=== PATIENT | male | born 1965 | race Caucasian/White ===

== ENCOUNTER 2021-12-11 12:01 | Outpatient (CLI) | payer BC ==
[2021-12-11 13:57] LABS: Hemoglobin 14.2 g/dL (13.5-17.5); Mean Corpuscular HGB CONC 33.9 g/dL (32.0-36.0); Mean Corpuscular Hemoglobin 32.1 pg (27.0-33.0); Mean Corpuscular Volume 94.8 fl (81.2-95.1); Mean Platelet Volume 10.4 fl (7.4-10.4); Platelet Count 204 10x3/uL (150-450); RBC Distribution Width 11.3 % (11.5-14.5); Red Blood Cell (RBC) Count 4.42 10x6/uL (4.32-5.72); White Blood Cell (WBC) Count 6.1 10x3/uL (3.5-10.5)
[2021-12-11 14:17] LABS: PTT 27.1 sec (22.0-33.0)
[2021-12-11 14:20] LABS: Anion Gap 15 mmol/L (10-20); BUN (Urea Nitrogen) 13 mg/dL (8.4-25.7); Calc. Creatinine Clearance 0 mL/min (70-130); Calcium 9.3 mg/dL (7.8-10.44); Carbon Dioxide 23 mmol/L (22-29); Chloride 104 mmol/L (98-107); Glucose 91 mg/dL (70-105); Potassium 4.1 mmol/L (3.5-5.1); Sodium 138 mmol/L (136-145)
[2021-12-11 14:37] LABS: Bilirubin Neg (Negative); Blood, Urine 10 (Negative); Clarity Clear (Clear); Glucose, Urine (Dipstick) Normal (Negative); Ketone, Urine Negative (Negative); Leukocyte Negative (Negative); Nitrite Negative (Negative); Protein, Urine (Dipstick) Negative (Neg-Trace); Urobilinogen Normal mg/dL (Less than 2)
[2021-12-11 15:08] LABS: Bacteria/HPF None Seen HPF (None Seen); RBC/HPF None Seen HPF (0-3); Squamous Epithelial 0-3 HPF (0-3); WBC/HPF None Seen HPF (0-3)
[2021-12-12 12:47] LABS: SARS-CoV-2 PCR by NAA Not Detected (NotDetected)
== END 2021-12-11 12:02 | disposition home or self-care (01) ==
LOC: LABBT 12:01
PROVIDERS: ATTEND Urology
DX: Z01.818 Encounter for other preprocedural examination (principal); C61 Malignant neoplasm of prostate; R35.1 Nocturia; Z20.822 Contact with and (suspected) exposure to COVID-19
CPT/HCPCS: 71046; 80048; 81001; 85027; 85610; 85730; 87086; 93005; 93010; U0003; U0005

== ENCOUNTER 2021-12-14 05:59 | Day surgery (SDC) | payer BC ==
[2021-12-04 14:57] VITALS: BMI 31.6
[2021-12-14] MEDS ORDERED: Midazolam HCl 2 mg/2 ml Vial ONE (07:14)
[2021-12-14] MEDS ORDERED: Propofol 500 MG/50 ML VIAL ONE (07:14)
[2021-12-14] MEDS ORDERED: Fentanyl 100 MCG/2 ML VIAL ONE (07:14)
[2021-12-14] MEDS ORDERED: cefTRIAXone\\ROCEPHIN 1 GM VIAL ONE (07:23)
[2021-12-14] MEDS ORDERED: Sodium Chloride 0.9% 100 ML ONE (07:24)
== END 2021-12-14 09:05 | disposition home or self-care (01) ==
LOC: SDC 05:59
PROVIDERS: ATTEND Urology
PROC: 0VB03ZX Excision of Prostate, Percutaneous Approach, Diagnostic (ICD-10-PCS; principal; 2021-12-14)
DX: C61 Malignant neoplasm of prostate (principal); N41.1 Chronic prostatitis; N40.0 Benign prostatic hyperplasia without lower urinary tract symptoms; I10 Essential (primary) hypertension; Z79.82 Long term (current) use of aspirin; Z79.899 Other long term (current) drug therapy
CPT/HCPCS: 88305; G0416; J0696; J2250; J2704; J3010; J3490

== ENCOUNTER 2022-07-03 15:44 | Outpatient (CLI) | payer BC ==
[2022-07-03 16:28] LABS: #Eosinphils 0.2 10x3/uL (0.0-0.5); #Monocytes 0.6 10x3/uL (0.0-1.1); #Neutrophils 3.1 10x3/uL (1.5-8.4); %Basophils 0.8 % (0.0-2.0); %Eosinophils 3.9 % (0.0-6.0); %Lymphocytes 21.4 % (18.0-47.0); %Monocytes 12.6 % (0.0-10.0); %Neutrophils 60.9 % (40.0-75.0); Hemoglobin 13.5 g/dL (13.5-17.5); Mean Corpuscular HGB CONC 34.4 g/dL (32.0-36.0); Mean Corpuscular Hemoglobin 31.7 pg (27.0-33.0); Mean Corpuscular Volume 92.3 fl (81.2-95.1); Platelet Count 179 10x3/uL (150-450); RBC Distribution Width 12.1 % (11.5-14.5); Red Blood Cell (RBC) Count 4.26 10x6/uL (4.32-5.72); White Blood Cell (WBC) Count 5.1 10x3/uL (3.5-10.5)
[2022-07-03 16:47] LABS: Prothrombin Time 11.2 sec (9.5-12.1)
[2022-07-03 16:54] LABS: Anion Gap 14 mmol/L (10-20); BUN (Urea Nitrogen) 13 mg/dL (8.4-25.7); Calc. Creatinine Clearance 0 mL/min (70-130); Calcium 9.6 mg/dL (7.8-10.44); Carbon Dioxide 25 mmol/L (22-29); Chloride 102 mmol/L (98-107); Estimated GFR 104; Glucose 91 mg/dL (70-105); Potassium 3.9 mmol/L (3.5-5.1); Sodium 137 mmol/L (136-145)
== END 2022-07-03 15:45 | disposition home or self-care (01) ==
LOC: LABBT 15:44
PROVIDERS: ATTEND Orthopaedic Surgery
DX: Z01.818 Encounter for other preprocedural examination (principal); M17.11 Unilateral primary osteoarthritis, right knee; Z20.822 Contact with and (suspected) exposure to COVID-19
CPT/HCPCS: 80048; 85025; 85610; 87081; 87811; 93005; 93010

== ENCOUNTER 2022-07-08 05:59 | Observation (INO) | payer BC ==
[2022-07-05 09:57] VITALS: BMI 31.7
[2022-07-08] MEDS ORDERED: fentaNYL Citrate/PF 100 MCG/2 ML SYRINGE ONE ×2 (06:04→07:50)
[2022-07-08] MEDS ORDERED: Bupivacaine PF 0.5% 30 ML VIAL ONE (06:25)
[2022-07-08] MEDS ORDERED: Sodium Chloride 0.9% 100 ML ONE ×2 (06:41→06:58)
[2022-07-08] MEDS ORDERED: Vancomycin (BATCH) 1.5 GRAM/300 ML BAG ONE (06:41)
[2022-07-08] MEDS ORDERED: Tranexamic Acid 1,000 MG/10 ML VIAL ONE (06:41)
[2022-07-08] MEDS ORDERED: Fentanyl 100 MCG/2 ML VIAL ONE ×2 (06:45→09:39)
[2022-07-08] MEDS ORDERED: Midazolam HCl 2 mg/2 ml Vial ONE (06:45)
[2022-07-08] MEDS ORDERED: HYDROcodone/Acetaminophen 10/325 mg Tablet PO PRN ×2 (06:49)
[2022-07-08] MEDS ORDERED: Promethazine HCl 25 MG/ML VIAL IM PRN ×2 (06:49→08:15)
[2022-07-08] MEDS ORDERED: diphenhydrAMINE 25 MG CAP PO PRN (06:49)
[2022-07-08] MEDS ORDERED: Ondansetron PF 4 MG/2 ML Vial IVP PRN ×2 (06:49→08:15)
[2022-07-08] MEDS ORDERED: Fentanyl 100 MCG/2 ML VIAL SLOW IVP PRN ×2 (06:49)
[2022-07-08] MEDS ORDERED: Zolpidem Tartrate 5 MG TAB PO PRN ×2 (06:49→08:15)
[2022-07-08] MEDS ORDERED: Acetaminophen 325 MG TAB PO PRN (06:49)
[2022-07-08] MEDS ORDERED: CEFAZOLIN 2 GM VIAL ONE (06:58)
[2022-07-08] MEDS ORDERED: Phenylephrine 10 MG/ML VIAL ONE (07:18)
[2022-07-08] MEDS ORDERED: Dexamethasone 20 MG/5 ML VIAL ONE (07:18)
[2022-07-08] MEDS ORDERED: Bupivacaine HCl 0.5%/Epinephrine 1:200,000/PF 30 ml Vial ONE (07:18)
[2022-07-08] MEDS ORDERED: Rocuronium Bromide 10 MG/ML (10ML VIAL) ONE (07:18)
[2022-07-08] MEDS ORDERED: PROPOFOL 200 MG/20 ML VIAL ONE (07:18)
[2022-07-08] MEDS ORDERED: Ondansetron PF 4 MG/2 ML Vial ONE (07:18)
[2022-07-08] MEDS ORDERED: SUGAMMADEX SODIUM 200 MG/2 ML VIAL ONE (07:50)
[2022-07-08] MEDS ORDERED: Fentanyl 100 MCG/2 ML VIAL IV PRN (08:07)
[2022-07-08] MEDS ORDERED: traMADol HCl 50 MG TAB PO PRN ×2 (08:15)
[2022-07-08] MEDS ORDERED: Ropivacaine 0.2% 550 ML 550 ML NERVE BLCK SCH (08:15)
[2022-07-08] MEDS ORDERED: Multivit, Therapeutic 1 TAB PO SCH (09:00)
[2022-07-08] MEDS: Sodium Chloride 0.9% 1,000 ML IV SCH ×3 (11:02→20:30)
[2022-07-08] MEDS: Aspirin 81 mg Enteric Coated Tablet PO SCH ×2 (11:02→21:31)
[2022-07-08] MEDS: Lisinopril 10 MG TAB PO SCH (11:02)
[2022-07-08] MEDS: Rosuvastatin 20 MG TAB PO SCH (11:02)
[2022-07-08] MEDS: FLUoxetine HCl 20 MG CAP PO SCH (11:02)
[2022-07-08] MEDS: HYDROcodone/Acetaminophen 10/325 mg Tablet PO PRN ×3 (11:19→21:32)
[2022-07-08] MEDS: Ketorolac Tromethamine 30 MG/ML VIAL IVP SCH ×3 (11:20→23:48)
[2022-07-08] MEDS ORDERED: Triple Antibiotic Oint 1 GM Packet TOP PRN (13:29)
[2022-07-08] MEDS ORDERED: Ketorolac Tromethamine 30 MG/ML VIAL IVP SCH (14:00)
[2022-07-08] MEDS: CEFAZOLIN 2 GM in Sodium Chloride 0.9% 100 ML IVPB SCH ×2 (14:59→23:47)
[2022-07-09 05:28] LABS: Hemoglobin 10.2 g/dL (14.0-18.0); Mean Corpuscular HGB CONC 34.5 g/dL (32.0-36.0); Mean Corpuscular Hemoglobin 32.6 pg (27.0-31.0); Mean Corpuscular Volume 94.5 fL (78.0-98.0); Mean Platelet Volume 7.7 fL (7.4-10.4); Platelet Count 149 thou/uL (130-400); RBC Distribution Width 11.3 % (11.5-14.5); Red Blood Cell (RBC) Count 3.13 mill/uL (4.70-6.10); White Blood Cell (WBC) Count 8.2 thou/uL (4.8-10.8)
[2022-07-09] MEDS: Ketorolac Tromethamine 30 MG/ML VIAL IVP SCH (05:34)
[2022-07-09] MEDS: HYDROcodone/Acetaminophen 10/325 mg Tablet PO PRN ×2 (05:34→08:43)
[2022-07-09 08:13] VITALS: BP 145/84; TEMP 97.9
[2022-07-09] MEDS: FLUoxetine HCl 20 MG CAP PO SCH (08:42)
[2022-07-09] MEDS: Rosuvastatin 20 MG TAB PO SCH (08:43)
[2022-07-09] MEDS: Aspirin 81 mg Enteric Coated Tablet PO SCH (08:43)
[2022-07-09] MEDS: Lisinopril 10 MG TAB PO SCH (08:43)
[2022-07-09] MEDS ORDERED: Senokot S 8.6-50 MG TAB PO SCH (09:00)
[2022-07-09] MEDS ORDERED: Multivitamin W/ Minerals 1 TAB PO SCH (09:00)
[2022-07-09] MEDS ORDERED: Ferrous Gluconate 324 MG TAB PO SCH (09:00)
== END 2022-07-09 10:40 | disposition home or self-care (01) ==
LOC: SDC 05:59 → SURG A 10:15 → SDC 10:24 → SURG A 10:25
PROVIDERS: ADMIT Orthopaedic Surgery; ATTEND Orthopaedic Surgery
PROC: 0SRC0J9 Replacement of Right Knee Joint with Synthetic Substitute, Cemented, Open Approach (ICD-10-PCS; principal; 2022-07-08)
PROC: 8E0YXBZ Computer Assisted Procedure of Lower Extremity (ICD-10-PCS; 2022-07-08)
PROC: 3E0T3BZ Introduction of Anesthetic Agent into Peripheral Nerves and Plexi, Percutaneous Approach (ICD-10-PCS; 2022-07-08)
DX: M17.0 Bilateral primary osteoarthritis of knee (principal); E78.00 Pure hypercholesterolemia, unspecified; I10 Essential (primary) hypertension; K21.9 Gastro-esophageal reflux disease without esophagitis; C61 Malignant neoplasm of prostate; Z87.891 Personal history of nicotine dependence; Z79.899 Other long term (current) drug therapy
CPT/HCPCS: 36415; 85027; A4306; C1713; C1776; J0690; J1100; J1885; J2250; J2370; J2405; J2704; J2795; J3010; J3370; J3490; J7050; S0020

== ENCOUNTER 2022-11-29 11:18 | Outpatient (CLI) | payer BC ==
[2022-11-29 12:52] LABS: Prothrombin Time 10.7 sec (9.5-12.1)
[2022-11-29 12:54] LABS: #Basophils 0.1 10x3/uL (0.0-0.2); #Eosinphils 0.2 10x3/uL (0.0-0.5); #Monocytes 0.7 10x3/uL (0.0-1.1); %Basophils 1.3 % (0.0-2.0); %Eosinophils 3.1 % (0.0-6.0); %Lymphocytes 22.2 % (18.0-47.0); %Monocytes 11.4 % (0.0-10.0); %Neutrophils 61.8 % (40.0-75.0); Hemoglobin 14.7 g/dL (13.5-17.5); Mean Corpuscular HGB CONC 35.2 g/dL (32.0-36.0); Mean Corpuscular Hemoglobin 32.1 pg (27.0-33.0); Mean Corpuscular Volume 91.3 fl (81.2-95.1); Mean Platelet Volume 9.8 fl (7.4-10.4); Platelet Count 212 10x3/uL (150-450); RBC Distribution Width 12.7 % (11.5-14.5); Red Blood Cell (RBC) Count 4.58 10x6/uL (4.32-5.72); White Blood Cell (WBC) Count 6.4 10x3/uL (3.5-10.5)
[2022-11-29 13:02] LABS: Anion Gap 14 mmol/L (10-20); BUN (Urea Nitrogen) 12 mg/dL (8.4-25.7); Calc. Creatinine Clearance 0 mL/min (70-130); Calcium 9.3 mg/dL (7.8-10.44); Carbon Dioxide 24 mmol/L (22-29); Chloride 103 mmol/L (98-107); Estimated GFR 102; Glucose 131 mg/dL (70-105); Potassium 3.9 mmol/L (3.5-5.1); Sodium 137 mmol/L (136-145)
== END 2022-11-29 11:19 | disposition home or self-care (01) ==
LOC: LABBT 11:18
PROVIDERS: ATTEND Orthopaedic Surgery
DX: Z01.818 Encounter for other preprocedural examination (principal); M17.12 Unilateral primary osteoarthritis, left knee
CPT/HCPCS: 80048; 85025; 85610; 87081; 93005; 93010

== ENCOUNTER 2022-12-02 06:33 | Observation (INO) | payer BC ==
[2022-12-02] MEDS ORDERED: Vancomycin (BATCH) 1.5 GRAM/300 ML BAG ONE (07:12)
[2022-12-02] MEDS ORDERED: Sodium Chloride 0.9% 100 ML ONE ×2 (07:12→09:13)
[2022-12-02] MEDS ORDERED: Tranexamic Acid 1,000 MG/10 ML VIAL ONE (07:12)
[2022-12-02] MEDS ORDERED: CEFAZOLIN 2 GM VIAL ONE ×2 (07:12→09:13)
[2022-12-02] MEDS ORDERED: Bupivacaine PF 0.5% 30 ML VIAL ONE ×2 (07:24→08:57)
[2022-12-02] MEDS ORDERED: Midazolam HCl 2 mg/2 ml Vial ONE (07:24)
[2022-12-02] MEDS ORDERED: Fentanyl 100 MCG/2 ML VIAL ONE (07:24)
[2022-12-02 08:12] LABS: SARS-CoV-2 NAA Rapid Test Not Detected (NotDetected)
[2022-12-02] MEDS ORDERED: Zolpidem Tartrate 5 MG TAB PO PRN ×2 (08:15→08:51)
[2022-12-02] MEDS ORDERED: Ondansetron PF 4 MG/2 ML Vial IVP PRN ×2 (08:15→08:51)
[2022-12-02] MEDS ORDERED: Promethazine HCl 25 MG/ML VIAL IM PRN ×2 (08:15→08:51)
[2022-12-02] MEDS ORDERED: Ropivacaine 0.2% 550 ML 550 ML NERVE BLCK SCH (08:15)
[2022-12-02] MEDS ORDERED: HYDROcodone/Acetaminophen 10/325 mg Tablet PO PRN (08:51)
[2022-12-02] MEDS ORDERED: Acetaminophen 325 MG TAB PO PRN (08:51)
[2022-12-02] MEDS ORDERED: diphenhydrAMINE 25 MG CAP PO PRN (08:51)
[2022-12-02] MEDS ORDERED: Non-Formulary Item 1 EACH (Fluoxetine Hcl [Fluoxetine Hcl] 20 MG Tablet) PO SCH (09:00)
[2022-12-02] MEDS ORDERED: Non-Formulary Item 1 EACH (Hydrochlorothiazide [Hydrochlorothiazide] 12.5 MG Tablet) PO SCH (09:00)
[2022-12-02] MEDS ORDERED: Non-Formulary Item 1 EACH (Multivitamin [Multivitamin] 1 EACH Tablet) PO SCH (09:00)
[2022-12-02] MEDS ORDERED: Multivitamin W/ Minerals 1 TAB PO SCH (09:00)
[2022-12-02] MEDS ORDERED: fentaNYL PF 100 MCG/2 ML SYRINGE ONE (09:03)
[2022-12-02] MEDS ORDERED: PHENYLEPHRINE-NS 100 MCG/ML 10 ML SYRINGE ONE (09:25)
[2022-12-02] MEDS ORDERED: Lidocaine 1% PF 5 ML VIAL ONE (09:25)
[2022-12-02] MEDS ORDERED: PROPOFOL 200 MG/20 ML VIAL ONE (09:25)
[2022-12-02] MEDS ORDERED: Bupivacaine HCl 0.5%/Epinephrine 1:200,000/PF 30 ml Vial ONE (09:25)
[2022-12-02] MEDS ORDERED: Ondansetron PF 4 MG/2 ML Vial ONE (09:25)
[2022-12-02] MEDS ORDERED: Ketorolac Tromethamine 30 MG/ML VIAL ONE ×2 (09:25→10:53)
[2022-12-02] MEDS ORDERED: Dexamethasone 20 MG/5 ML VIAL ONE (09:25)
[2022-12-02] MEDS ORDERED: HYDROmorphone 2 MG/ML VIAL ONE (09:59)
[2022-12-02] MEDS ORDERED: Phenylephrine 10 MG/ML VIAL ONE (10:17)
[2022-12-02] MEDS ORDERED: Fentanyl 100 MCG/2 ML VIAL SLOW IVP PRN (11:20)
[2022-12-02] MEDS ORDERED: Ketorolac Tromethamine 30 MG/ML VIAL IVP SCH (12:00)
[2022-12-02] MEDS ORDERED: CEFAZOLIN 2 GM in Sodium Chloride 0.9% 100 ML IVPB SCH (14:00)
[2022-12-02] MEDS: CEFAZOLIN 2 GM in Sodium Chloride 0.9% 100 ML IVPB SCH ×2 (16:40→22:29)
[2022-12-02] MEDS: Ketorolac Tromethamine 30 MG/ML VIAL IVP SCH ×3 (16:41→22:30)
[2022-12-02] MEDS: HYDROcodone/Acetaminophen 10/325 mg Tablet PO PRN (18:08)
[2022-12-02 19:43] VITALS: BMI 31.6
[2022-12-02] MEDS: Aspirin 81 mg Enteric Coated Tablet PO SCH ×2 (19:44→22:29)
[2022-12-02] MEDS: Ferrous Gluconate 324 MG TAB PO SCH ×2 (19:44→22:29)
[2022-12-02] MEDS: Rosuvastatin 20 MG TAB PO SCH (19:45)
[2022-12-02] MEDS: Senokot S 8.6-50 MG TAB PO SCH ×2 (19:45→22:29)
[2022-12-02] MEDS: Sodium Chloride 0.9% 1,000 ML IV SCH ×2 (19:45→22:28)
[2022-12-02] MEDS: Lisinopril 20 MG TAB PO SCH (19:45)
[2022-12-02] MEDS: Fentanyl 100 MCG/2 ML VIAL IV PRN (22:38)
[2022-12-03] MEDS: Ketorolac Tromethamine 30 MG/ML VIAL IVP SCH ×2 (04:51→09:37)
[2022-12-03] MEDS: HYDROcodone/Acetaminophen 10/325 mg Tablet PO PRN ×2 (04:52→11:13)
[2022-12-03] MEDS: Sodium Chloride 0.9% 1,000 ML IV SCH (05:00)
[2022-12-03 06:04] LABS: Hemoglobin 11.1 g/dL (14.0-18.0); Mean Corpuscular HGB CONC 34.1 g/dL (32.0-36.0); Mean Corpuscular Hemoglobin 32.6 pg (27.0-31.0); Mean Corpuscular Volume 95.6 fl (78.0-98.0); Mean Platelet Volume 7.6 fL (7.4-10.4); Platelet Count 160 10x3/uL (130-400); RBC Distribution Width 11.6 % (11.5-14.5); White Blood Cell (WBC) Count 10.1 10x3/uL (4.8-10.8)
[2022-12-03] MEDS: Fentanyl 100 MCG/2 ML VIAL IV PRN (07:40)
[2022-12-03] MEDS: Rosuvastatin 20 MG TAB PO SCH (07:47)
[2022-12-03] MEDS: Ferrous Gluconate 324 MG TAB PO SCH (07:48)
[2022-12-03] MEDS: Lisinopril 20 MG TAB PO SCH (07:48)
[2022-12-03] MEDS: Senokot S 8.6-50 MG TAB PO SCH (07:50)
[2022-12-03 08:51] VITALS: BP 146/80; TEMP 98.1
[2022-12-03] MEDS ORDERED: FLU VACC QS2022-23(6MOS UP)/PF 60 MCG/0.5 ML SYRINGE IM ONE (09:00)
[2022-12-03] MEDS ORDERED: Aspirin 81 mg Enteric Coated Tablet PO SCH (09:00)
[2022-12-03] MEDS ORDERED: FLUoxetine HCl 20 MG CAP PO SCH (09:00)
[2022-12-03] MEDS ORDERED: Hydrochlorothiazide 25 MG TAB PO SCH (09:00)
[2022-12-03] MEDS ORDERED: Multivit, Therapeutic 1 TAB PO SCH (09:00)
== END 2022-12-03 11:51 | disposition home or self-care (01) ==
LOC: SDC 06:33 → SJJU 11:58
PROVIDERS: ADMIT Orthopaedic Surgery; ATTEND Orthopaedic Surgery
PROC: 0SRD0J9 Replacement of Left Knee Joint with Synthetic Substitute, Cemented, Open Approach (ICD-10-PCS; principal; 2022-12-02)
DX: M17.12 Unilateral primary osteoarthritis, left knee (principal); E78.00 Pure hypercholesterolemia, unspecified; I10 Essential (primary) hypertension; K21.9 Gastro-esophageal reflux disease without esophagitis; Z85.46 Personal history of malignant neoplasm of prostate; Z87.891 Personal history of nicotine dependence; Z79.1 Long term (current) use of non-steroidal anti-inflammatories (NSAID); Z79.82 Long term (current) use of aspirin; Z79.899 Other long term (current) drug therapy; Z96.651 Presence of right artificial knee joint; Z20.822 Contact with and (suspected) exposure to COVID-19
CPT/HCPCS: 36415; 85027; 90471; 90686; 96365; 96375; 96376; A4306; C1713; C1776; G0008; G0378; J1100; J1170; J1885; J2250; J2370; J2405; J2704; J2795; J3010; J3370; J3490; J7050; S0020; U0002

== ENCOUNTER 2024-11-23 15:58 | Outpatient (CLI) | payer BC ==
[2024-11-23 16:29] LABS: #Basophils 0.05 10x3/uL (0.0-0.2); %Basophils 0.8 % (0.0-1.0); %Eosinophils 6.7 % (0.0-10.0); %Lymphocytes 28.5 % (21.0-51.0); %Monocytes 9.9 % (0.0-10.0); %Neutrophils 53.8 % (42.0-75.0); Hematocrit 40.8 % (42.0-52.0); Hemoglobin 14.5 g/dL (14.0-18.0); Mean Corpuscular HGB CONC 35.5 g/dL (32.0-36.0); Mean Corpuscular Hemoglobin 32.6 pg (27.0-31.0); Mean Corpuscular Volume 91.7 fL (78.0-98.0); Mean Platelet Volume 9.8 fL (7.4-10.4); Platelet Count 219 10x3/uL (130-400); RBC Distribution Width 11.9 % (11.5-14.5); Red Blood Cell (RBC) Count 4.45 mill/uL (4.70-6.10)
[2024-11-23 16:46] LABS: Anion Gap 15 mmol/L (10-20); BUN (Urea Nitrogen) 11 mg/dL (8.4-25.7); Calc. Creatinine Clearance 0 mL/min (70-130); Calcium 8.9 mg/dL (7.8-10.44); Carbon Dioxide 20 mmol/L (23-31); Chloride 105 mmol/L (98-107); Estimated GFR 103; Glucose 149 mg/dL (80-115); INR-International Normal Ratio 0.9; Potassium 4.1 mmol/L (3.5-5.1); Prothrombin Time 12.5 sec (12.0-14.7); Sodium 136 mmol/L (136-145)
[2024-11-23 16:47] LABS: PTT 30.1 sec (22.9-36.1)
== END 2024-11-23 15:59 | disposition home or self-care (01) ==
LOC: LABBT 15:58
PROVIDERS: ATTEND Orthopaedic Surgery Hand Surgery
DX: Z01.818 Encounter for other preprocedural examination (principal); M18.0 Bilateral primary osteoarthritis of first carpometacarpal joints
CPT/HCPCS: 80048; 85025; 85610; 85730; 87081; 93005; 93010